=== PATIENT | female | born 1980 | race Caucasian/White ===

== ENCOUNTER → 2018-04-01 09:06 | Outpatient (CLI) | payer OTHER, SELFPAY ==
[2018-04-01 09:43] LABS: Add Manual Diff / Slide Review NO; Basophils Percent Auto 0.9 % (0-2); Eosinophils Percent Auto 1.9 % (2-4); Hematocrit 39.3 % (36-46); Hemoglobin 13.2 g/dL (12.0-16.0); Lymphocytes Percent Auto 30.5 % (25-40); Mean Corpuscular HGB Conc 33.5 % (30-36); Mean Corpuscular Hemoglobin 30.2 PG (26-34); Mean Corpuscular Volume 90.4 fL (80-100); Monocytes Percent Auto 7.4 % (3-14); Neutrophils Absolute Auto 3500 /uL (3000-5900); Neutrophils Percent Auto 59.3 % (50-75); Platelet Count 259 X10^3/uL (150-400); Red Blood Cell Count 4.35 X10^6/uL (4.0-5.2); Red Cell Distribution Width 12.8 % (11.6-14.8); White Blood Cell Count 5.9 X10^3/uL (4.5-11.0)
[2018-04-01 10:06] LABS: Alanine Aminotransferase 22 IU/L (9-52); Albumin 4.3 g/dL (3.5-5.0); Albumin Globulin Ratio 1.4 (1.0-2.8); Alkaline Phosphatase 44 U/L (38-126); Aspartate Aminotransferase 24 IU/L (14-36); BUN Creatinine Ratio 21.4 (6-22); Bilirubin Total 1.3 mg/dL (0.2-1.3); Blood Urea Nitrogen 15 mg/dL (7-17); Calcium 9.4 mg/dL (8.4-10.2); Carbon Dioxide 32 mmol/L (22-32); Chloride 104 mmol/L (98-107); Cholesterol 159 mg/dL (140-199); Estimated Glomerular Filt Rate > 60.0 mL/min (>60); Globulin 3.1 g/dL (1.7-4.1); Glucose 88 mg/dL (70-100); HDL Cholesterol 74 mg/dL (40-60); HEMOLYSIS < 15 (0-50); LDL Cholesterol Calculated 75 mg/dL (<100); Potassium 5.3 mmol/L (3.4-5.1); Sodium 143 mmol/L (137-145); Total Protein 7.4 g/dL (6.3-8.2); Triglycerides 51 mg/dL (35-150)
[2018-04-01 12:18] LABS: Thyroid Stimulating Hormone 0.92 uIU/mL (0.47-4.68)
== END ==
PROVIDERS: PCP Family Medicine; Visit Provider Family Medicine
DX: Z00.00 Encounter for general adult medical examination without abnormal findings (principal)
CPT/HCPCS: 36415; 80053; 80061; 84443; 85025

== ENCOUNTER → 2020-12-12 09:11 | Outpatient (CLI) | payer OTHER, SELFPAY ==
[2020-12-12 09:37] LABS: Hematocrit 38.1 % (36-46); Hemoglobin 12.9 g/dL (12.0-16.0); Mean Corpuscular HGB Conc 33.8 % (30-36); Mean Corpuscular Hemoglobin 31.3 PG (26-34); Mean Corpuscular Volume 92.4 fL (80-100); Platelet Count 222 X10^3/uL (150-400); Red Blood Cell Count 4.13 X10^6/uL (4.0-5.2); Red Cell Distribution Width 13.1 % (11.6-14.8); White Blood Cell Count 5.2 X10^3/uL (4.5-11.0)
[2020-12-12 09:54] LABS: Alanine Aminotransferase 14 IU/L (<35); Albumin 3.8 g/dL (3.5-5.0); Albumin Globulin Ratio 1.2 (1.0-2.8); Alkaline Phosphatase 41 U/L (38-126); Aspartate Aminotransferase 29 IU/L (14-36); BUN Creatinine Ratio 20.6 (6-22); Blood Urea Nitrogen 14 mg/dL (7-17); Calcium 8.9 mg/dL (8.4-10.2); Carbon Dioxide 26 mmol/L (22-32); Chloride 104 mmol/L (98-107); Cholesterol 159 mg/dL (140-199); Estimated Glomerular Filt Rate > 60.0 mL/min (>60); Globulin 3.1 g/dL (1.7-4.1); Glucose 92 mg/dL (70-100); HDL Cholesterol 83 mg/dL (40-60); HEMOLYSIS < 15 (0-50); LDL Cholesterol Calculated 68 mg/dL (<100); Potassium 4.1 mmol/L (3.4-5.1); Sodium 135 mmol/L (137-145); Total Protein 6.9 g/dL (6.3-8.2); Triglycerides 42 mg/dL (35-150)
== END ==
PROVIDERS: Family Provider Family Medicine; PCP Nurse Practitioner Family; Referring Provider Nurse Practitioner Family; Visit Provider Nurse Practitioner Family
DX: Z00.00 Encounter for general adult medical examination without abnormal findings (principal); Z13.6 Encounter for screening for cardiovascular disorders
CPT/HCPCS: 36415; 80053; 80061; 85027

== ENCOUNTER → 2022-04-01 11:11 | Outpatient (CLI) | payer OTHER, SELFPAY ==
--- NOTE | 2022-04-01 11:13 | DI.MG.S_ITS ---
BILATERAL DIGITAL SCREENING MAMMOGRAM 3D/2D WITH CAD: 04/01/2022 CLINICAL: Routine screening. Baseline exam. Family history of breast cancer. No prior exams were available for comparison. Both breasts are heterogeneously dense, which may obscure small masses (category c / 51-75% glandular tissue). Current study was also evaluated with a Computer Aided Detection (CAD) system. There is an oval low density asymmetry with an obscured and indistinct margin in the right breast anterior depth medial region seen on the craniocaudal view only. There is a 9 mm oval low density asymmetry with an obscured and circumscribed margin in the left breast at 4 o'clock posterior depth. There is architectural distortion associated with the asymmetry. No other significant masses or calcifications are seen in either breast. IMPRESSION: INCOMPLETE: NEEDS ADDITIONAL IMAGING EVALUATION The oval low density asymmetry in the right breast anterior depth medial region seen on the craniocaudal view only is indeterminate. Additional views with possible ultrasound are recommended. The 9 mm oval low density asymmetry in the left breast at 4 o'clock posterior depth is indeterminate. Additional views with possible ultrasound are recommended. This exam was interpreted at Station ID: [id number]. NOTE: For mammograms, a report in lay terms will be sent to the patient. Approximately 15% of breast malignancies will not be visualized mammographically. In the management of a palpable breast mass, a negative mammogram must not discourage biopsy of a clinically suspicious lesion. Electronically Signed By: Jaqueline cortes/rajinder:04/01/2022 13:32:24 letter sent: Additional Imaging Needed ACR BI-RADS Category 0: Incomplete 3340F
[2022-04-01 12:12] LABS: Hematocrit 37.2 % (36-46); Hemoglobin 12.8 g/dL (12.0-16.0); Mean Corpuscular HGB Conc 34.6 % (30-36); Mean Corpuscular Hemoglobin 31.5 PG (26-34); Mean Corpuscular Volume 91.1 fL (80-100); Platelet Count 231 X10^3/uL (150-400); Red Blood Cell Count 4.08 X10^6/uL (4.0-5.2); White Blood Cell Count 6.2 X10^3/uL (4.5-11.0)
[2022-04-01 12:51] LABS: Alanine Aminotransferase 14 IU/L (<35); Albumin Globulin Ratio 1.3 (1.0-2.8); Alkaline Phosphatase 40 U/L (38-126); Aspartate Aminotransferase 26 IU/L (14-36); BUN Creatinine Ratio 19.4 (6-22); Bilirubin Total 1.5 mg/dL (0.2-1.3); Blood Urea Nitrogen 14 mg/dL (7-17); Calcium 8.6 mg/dL (8.4-10.2); Carbon Dioxide 27 mmol/L (22-32); Chloride 104 mmol/L (98-107); Cholesterol 149 mg/dL (140-199); Estimated Glomerular Filt Rate > 60 mL/min (>60); Globulin 3.2 g/dL (1.7-4.1); Glucose 79 mg/dL (70-100); HDL Cholesterol 79 mg/dL (40-60); HEMOLYSIS < 15 (0-50); LDL Cholesterol Calculated 61 mg/dL (<100); Potassium 3.7 mmol/L (3.4-5.1); Sodium 137 mmol/L (137-145); Total Protein 7.2 g/dL (6.3-8.2); Triglycerides 43 mg/dL (35-150)
[2022-04-01 13:18] LABS: Free T3, Triiodothyronine Free 3.05 pg/mL (2.77-5.27); Free T4, Direct Thyroxine 1.36 ng/dL (0.78-2.19)
[2022-04-01 13:31] LABS: Thyroid Stimulating Hormone 0.743 uIU/mL (0.47-4.68)
== END ==
PROVIDERS: Family Provider Family Medicine; PCP Nurse Practitioner; Referring Provider Nurse Practitioner; Visit Provider Nurse Practitioner
DX: Z00.00 Encounter for general adult medical examination without abnormal findings (principal); Z12.31 Encounter for screening mammogram for malignant neoplasm of breast; Z85.3 Personal history of malignant neoplasm of breast; N64.89 Other specified disorders of breast
CPT/HCPCS: 36415; 77063; 77067; 80053; 80061; 84439; 84443; 84481; 85027

== ENCOUNTER → 2022-04-30 10:28 | Outpatient (CLI) | payer OTHER, SELFPAY ==
--- NOTE | 2022-04-30 10:29 | DI.MG.S_ITS ---
BILATERAL DIGITAL DIAGNOSTIC MAMMOGRAM 3D/2D: 04/30/2022 CLINICAL: Additional evaluation requested from prior study. Comparison is made to exam dated: 04/01/2022 mammogram - [facility]. Both breasts are heterogeneously dense, which may obscure small masses (category c / 51-75% glandular tissue). There is an oval low density asymmetry with an obscured and indistinct margin in the right breast middle depth medial region seen on the craniocaudal view only. There is a 9 mm oval low density asymmetry with an obscured and circumscribed margin in the left breast at 4 o'clock posterior depth. There is architectural distortion associated with the asymmetry. No other significant masses or calcifications are seen in either breast. IMPRESSION: INCOMPLETE: NEEDS ADDITIONAL IMAGING EVALUATION The oval low density asymmetry in the right breast middle depth medial region seen on the craniocaudal view only is indeterminate. The 9 mm oval low density asymmetry in the left breast at 4 o'clock posterior depth is indeterminate. Bilateral breast ultrasound has been scheduled to immediately follow this exam in order to evaluate these asymmetries more comprehensively. This exam was interpreted at Station ID: [id number]. NOTE: For mammograms, a report in lay terms will be sent to the patient. Approximately 15% of breast malignancies will not be visualized mammographically. In the management of a palpable breast mass, a negative mammogram must not discourage biopsy of a clinically suspicious lesion. Electronically Signed By: Maxwell Ricketts M.D. jr/:04/30/2022 13:42:36 ACR BI-RADS Category 0: Incomplete 3340F
--- NOTE | 2022-04-30 10:29 | DI.US.S_ITS ---
LIMITED ULTRASOUND OF RIGHT BREAST: 04/30/2022 CLINICAL: Patient returns today to evaluate an asymmetry in the right breast. Comparison is made to exams dated: 04/30/2022 mammogram and 04/01/2022 mammogram - [facility]. Color flow, real-time, and Doppler ultrasound of the right breast 5-7 o'clock region were performed. Toussaint scale images of the real-time examination were reviewed. There are tiny complicated cysts in the right breast at 5:00 and 7:00 middle depth measuring 8 x 6 x 4 mm and 8 x 7 x 2 mm, respectively. IMPRESSION: PROBABLY BENIGN The mass in the right breast needs additional evaluation. A follow-up mammogram and an ultrasound in 6 months is recommended to demonstrate stability. This exam was interpreted at Station ID: [id number]. Electronically Signed By: Maxwell Ricketts M.D. jr/:04/30/2022 14:18:14 Entry: - 05/04/2022 09:58:40 Ultrasound BI-RADS: 3 Probably benign
--- NOTE | 2022-04-30 10:29 | DI.US.S_ITS ---
LIMITED ULTRASOUND OF LEFT BREAST: 04/30/2022 CLINICAL: Patient returns today to evaluate an asymmetry in the left breast. Comparison is made to exams dated: 04/30/2022 mammogram and 04/01/2022 mammogram - [facility]. Color flow, real-time, and Doppler ultrasound of the left breast 4 o'clock region were performed. Toussaint scale images of the real-time examination were reviewed. There is a benign 9 mm intramammary lymph node in the left breast at 4 o'clock posterior depth. This correlates with mammography findings. IMPRESSION: PROBABLY BENIGN The 9 mm intramammary lymph node in the left breast is benign. Follow-up RIGHT mammogram and RIGHT breast ultrasound in 6 months is recommended to document stability of the right breast complicated cysts. This exam was interpreted at Station ID: [id number]. Electronically Signed By: Maxwell Ricketts M.D. jr/:04/30/2022 13:44:38 letter sent: Followup Recommended Ultrasound BI-RADS: 3 Probably benign
== END ==
PROVIDERS: Family Provider Family Medicine; PCP Nurse Practitioner; Referring Provider Nurse Practitioner; Visit Provider Nurse Practitioner
DX: R92.8 Other abnormal and inconclusive findings on diagnostic imaging of breast (principal); N63.10 Unspecified lump in the right breast, unspecified quadrant; N60.01 Solitary cyst of right breast
CPT/HCPCS: 76642; 77066; G0279

== ENCOUNTER → 2023-01-27 09:53 | Outpatient (CLI) | payer OTHER, SELFPAY ==
[2023-01-27 11:40] LABS: Creatinine Urine Random 206.9 mg/dL
[2023-01-27 11:46] LABS: Microalbumi Creatinin Ratio Ur 5.3 ug/mg CR (<30); Microalbumin Urine Random 1.1 mg/dL (0-1.6)
== END ==
PROVIDERS: Family Provider Family Medicine; PCP Nurse Practitioner; Visit Provider Nurse Practitioner
DX: Z00.00 Encounter for general adult medical examination without abnormal findings (principal); N88.8 Other specified noninflammatory disorders of cervix uteri
CPT/HCPCS: 82043; 82570; 87070; 87205

== ENCOUNTER → 2023-01-27 09:54 | Outpatient (CLI) | payer OTHER, SELFPAY ==
[2023-01-27 11:03] LABS: Hematocrit 38.9 % (36-46); Hemoglobin 13.1 g/dL (12.0-16.0); Mean Corpuscular HGB Conc 33.7 % (30-36); Mean Corpuscular Hemoglobin 30.8 PG (26-34); Mean Corpuscular Volume 91.5 fL (80-100); Platelet Count 245 X10^3/uL (150-400); Red Blood Cell Count 4.26 X10^6/uL (4.0-5.2); Red Cell Distribution Width 13.2 % (11.6-14.8)
[2023-01-27 11:24] LABS: Alanine Aminotransferase 23 IU/L (<35); Albumin Globulin Ratio 1.2 (1.0-2.8); Alkaline Phosphatase 48 U/L (38-126); Aspartate Aminotransferase 31 IU/L (14-36); BUN Creatinine Ratio 17.3 (6-22); Bilirubin Total 1.3 mg/dL (0.2-1.3); Blood Urea Nitrogen 13 mg/dL (7-17); Calcium 8.6 mg/dL (8.4-10.2); Carbon Dioxide 30 mmol/L (22-32); Chloride 102 mmol/L (98-107); Cholesterol 166 mg/dL (140-199); Estimated Glomerular Filt Rate > 60 mL/min (>60); Globulin 3.3 g/dL (1.7-4.1); Glucose 89 mg/dL (70-100); HDL Cholesterol 86 mg/dL (40-60); HEMOLYSIS < 15 (0-50); LDL Cholesterol Calculated 70 mg/dL (<100); Sodium 137 mmol/L (137-145); Total Protein 7.3 g/dL (6.3-8.2); Triglycerides 52 mg/dL (35-150)
[2023-01-27 11:37] LABS: Free T3, Triiodothyronine Free 3.65 pg/mL (2.77-5.27); Free T4, Direct Thyroxine 1.18 ng/dL (0.78-2.19)
[2023-01-27 11:50] LABS: Thyroid Stimulating Hormone 1.77 uIU/mL (0.47-4.68)
[2023-01-28 16:38] LABS: HIV 1 & 2 Ab/Ag 4th Gen Combo NEGATIVE (NEGATIVE); Hep C Virus Ab w/Reflex Quant NEGATIVE s/c (NEGATIVE)
== END ==
PROVIDERS: Family Provider Family Medicine; PCP Nurse Practitioner; Referring Provider Nurse Practitioner; Visit Provider Nurse Practitioner
DX: Z00.00 Encounter for general adult medical examination without abnormal findings (principal); Z11.4 Encounter for screening for human immunodeficiency virus [HIV]; Z11.59 Encounter for screening for other viral diseases; N88.8 Other specified noninflammatory disorders of cervix uteri
CPT/HCPCS: 36415; 80053; 80061; 82043; 82570; 84439; 84443; 84481; 85027; 86803; 87070; 87205; 87389

== ENCOUNTER → 2023-03-24 09:28 | Outpatient (CLI) | payer OTHER, SELFPAY ==
--- NOTE | 2023-03-24 | DI.MG.S_ITS ---
BILATERAL DIGITAL DIAGNOSTIC MAMMOGRAM 3D/2D SHORT-TERM FOLLOW-UP: 03/24/2023 CLINICAL: Short term follow up of the right breast, due for bilateral imaging. Comparison is made to exams dated: 04/30/2022 ultrasound, 04/30/2022 mammogram, and 04/01/2022 mammogram - [facility]. Both breasts are heterogeneously dense, which may obscure small masses (category c / 51-75% glandular tissue). There is an oval low density asymmetry with an obscured and indistinct margin in the right breast middle depth medial region seen on the craniocaudal view only. This is not significantly changed. There is a 9 mm oval low density asymmetry with an obscured and circumscribed margin in the left breast at 4 o'clock posterior depth. This is not significantly changed and correlates with ultrasound findings of a benign lymph node as previously reported. No other significant masses or calcifications are seen in either breast. IMPRESSION: INCOMPLETE: NEEDS ADDITIONAL IMAGING EVALUATION The oval low density asymmetry in the right breast middle depth medial region seen on the craniocaudal view only is indeterminate. An ultrasound is recommended for further evaluation and is scheduled to immediately follow this examination. The 9 mm oval low density asymmetry in the left breast at 4 o'clock posterior depth is not significantly changed and most likely is a benign lymph node as previously described. Based on the Tyrer Cuzick model (a risk assessment model) the patient's lifetime risk is 15.3% and her 10 year risk is 2.1%. According to the ACR, ACS, and NCCN guidelines, an annual breast MRI exam along with mammogram is recommended if the patient's lifetime risk is 20% or greater. This exam was interpreted at Station ID: [id number]. NOTE: For mammograms, a report in lay terms will be sent to the patient. Approximately 15% of breast malignancies will not be visualized mammographically. In the management of a palpable breast mass, a negative mammogram must not discourage biopsy of a clinically suspicious lesion. Electronically Signed By: Dami Robertson M.D. aty/:03/24/2023 12:53:52 ACR BI-RADS Category 0: Incomplete 3340F
--- NOTE | 2023-03-24 09:29 | DI.US.S_ITS ---
ULTRASOUND OF RIGHT BREAST: 03/24/2023 CLINICAL: Patient returns today to evaluate an asymmetry in the right breast. Comparison is made to exams dated: 03/24/2023 mammogram, 04/30/2022 ultrasound, 04/30/2022 ultrasound, 04/30/2022 mammogram, and 04/01/2022 mammogram - [facility]. Color flow and real-time ultrasound of the right breast were performed. Toussaint scale images of the real-time examination were reviewed. There is a 0.8 cm x 0.4 cm x 0.6 cm wider than tall oval cyst with a septated internal wall in the right breast at 5 o'clock middle depth 2 cm from the nipple. This oval cyst is hypoechoic with internal echoes. This abnormality is not significantly changed. Color flow imaging demonstrates that there is no vascularity present. There also is a 0.9 cm x 0.2 cm x 0.7 cm wider than tall oval cyst in the right breast at 7 o'clock middle depth 2 cm from the nipple. This oval cyst is hypoechoic. This abnormality is not significantly changed. Color flow imaging demonstrates that there is no vascularity present. IMPRESSION: PROBABLY BENIGN The 0.8 cm x 0.4 cm x 0.6 cm wider than tall oval cyst in the right breast at 5 o'clock middle depth resembles a complicated cyst and is probably benign. The 0.9 cm x 0.2 cm x 0.7 cm wider than tall oval cyst in the right breast at 7 o'clock middle depth is consistent with a complicated cyst and is probably benign. 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 Findings and recommendations were conveyed to the patient during today's evaluation. This exam was interpreted at Station ID: [id number]. Electronically Signed By: Dami Robertson M.D. aty/:03/24/2023 17:09:42 letter sent: Followup Recommended Ultrasound BI-RADS: 3 Probably benign
== END ==
PROVIDERS: Family Provider Family Medicine; PCP Nurse Practitioner; Referring Provider Nurse Practitioner; Visit Provider Nurse Practitioner
DX: R92.8 Other abnormal and inconclusive findings on diagnostic imaging of breast (principal); N60.01 Solitary cyst of right breast
CPT/HCPCS: 76642; 77066; G0279

== ENCOUNTER → 2024-09-05 09:31 | Outpatient (CLI) | payer OTHER, SELFPAY ==
--- NOTE | 2024-09-05 09:32 | DI.MG.S_ITS ---
BILATERAL DIGITAL DIAGNOSTIC MAMMOGRAM 3D/2D SHORT-TERM FOLLOW-UP: 09/05/2024 CLINICAL: Short term follow up for bilateral breasts. Comparison is made to exams dated: 03/24/2023 mammogram, 04/30/2022 mammogram, 04/01/2022 mammogram, 03/24/2023 ultrasound, 04/30/2022 ultrasound, and 04/30/2022 ultrasound - [facility]. The breasts are heterogeneously dense, which may obscure small masses (category c / 51-75% glandular tissue). There is an asymmetry in the right breast middle depth medial region seen on the craniocaudal view only. This is less prominent. No other significant masses, calcifications, or other findings are seen in either breast. IMPRESSION: INCOMPLETE: NEED ADDITIONAL IMAGING EVALUATION The asymmetry in the right breast is indeterminate. A targeted ultrasound is recommended and will immediately follow. Based on the Tyrer Cuzick model (a risk assessment model) the patient's lifetime risk is 15.3% and her 10 year risk is 2.5%. According to the ACR, ACS, and NCCN guidelines, an annual breast MRI exam along with mammogram is recommended if the patient's lifetime risk is 20% or greater. This exam was interpreted at Station ID: [id number]. NOTE: For mammograms, a report in lay terms will be sent to the patient. Approximately 15% of breast malignancies will not be visualized mammographically. In the management of a palpable breast mass, a negative mammogram must not discourage biopsy of a clinically suspicious lesion. Electronically Signed By: Parker Dejesus M.D. slc/:09/05/2024 10:05:01 letter sent: Additional Imaging Needed ACR BI-RADS Category 0: Incomplete: Need Additional Imaging Evaluation
--- NOTE | 2024-09-05 09:32 | DI.US.S_ITS ---
LIMITED ULTRASOUND OF RIGHT BREAST AND AXILLA: 09/05/2024 CLINICAL: Patient returns for a 12 month follow up of the right breast, due for bilateral exam. Comparison is made to exams dated: 09/05/2024 mammogram, 03/24/2023 ultrasound, 03/24/2023 mammogram, 04/30/2022 ultrasound, 04/30/2022 mammogram, and 04/01/2022 mammogram - [facility]. Color flow and real-time ultrasound of the right breast 5 o'clock, 7 o'clock, and axilla regions were performed. Toussaint scale images of the real-time examination were reviewed. There is a stable benign 0.8 cm x 0.4 cm x 0.2 cm oval cyst in the right breast at 5 o'clock middle depth 2 cm from the nipple. This oval cyst is hypoechoic. Color flow imaging demonstrates that there is no vascularity present. There also is a stable benign 0.6 cm x 0.6 cm x 0.3 cm oval cyst in the right breast at 7 o'clock middle depth 2 cm from the nipple. This oval cyst is hypoechoic. Color flow imaging demonstrates that there is no vascularity present. IMPRESSION: BENIGN There is no sonographic evidence of malignancy. The stable 0.8 cm cyst in the right breast at 5 o'clock middle depth demonstrates long-term stability and is benign. The stable 0.6 cm cyst in the right breast at 7 o'clock middle depth demonstrates long-term stability and is benign. Exam findings were conveyed to the patient. A 1 year screening mammogram is recommended. This exam was interpreted at Station ID: [id number]. Electronically Signed By: Parker Dejesus M.D. [facility] [place]:09/05/2024 11:14:12 letter sent: Normal Exam ACR BI-RADS Category 2: Benign
== END ==
PROVIDERS: PCP Registered Nurse Diabetes Educator; Referring Provider Registered Nurse Diabetes Educator; Visit Provider Registered Nurse Diabetes Educator
DX: R92.8 Other abnormal and inconclusive findings on diagnostic imaging of breast (principal); N60.01 Solitary cyst of right breast
CPT/HCPCS: 76642; 77066; G0279